=== PATIENT | female | born 1955 ===

== ENCOUNTER 2020-03-20 16:35 | Inpatient (IN) | payer MEDICARE ==
[~2020-03-20] VITALS: Ht 152.4 cm; Wt 63.6 kg
[2020-03-20] MEDS ORDERED: OMEPRAZOLE20 M1 PO (16:40)
[2020-03-20] MEDS ORDERED: K-TAB10 MEQ PO (16:41)
[2020-03-20 17:48] VITALS: BP 115/56
[2020-03-20 17:50] LABS: BASOPHILS 0.1 % (0-2); EOSINOPHILS 0 % (0-7); HEMOGLOBIN 14.2 g/dL (12-16); IMMATURE GRANULOCYTES 0.7 % (0-5); LYMPHOCYTES 8.2 % (15-50); MCH 33.3 pg (26.0-34.0); MCHC 34.6 g/dL (31.0-37.0); MEAN PLATELET VOLUME 9.5 fL (7.4-10.4); MONOCYTES 6.4 % (2-11); NEUTROPHILS 84.6 % (40-80); PLATELET COUNT 147 10x3/uL (130-400); RBC 4.27 10x6/uL (4.00-5.40); RDW 13.2 % (11.5-14.5); WBC 13.1 10x3/uL (4.8-10.8)
[2020-03-20 17:59] LABS: APTT 30.2 SECONDS (22.8-39.4); INR 1.1 (0.85-1.17); PROTIME 14.2 SECONDS (11.6-15.0)
[2020-03-20 18:08] LABS: CALC OSMOLALITY 261 mosm/kg (275-300); CALCIUM 7.6 mg/dL (8.5-10.1); CARBON DIOXIDE 23.3 mmol/L (21.0-32.0); CHLORIDE - SERUM 95 mmol/L (98-107); CREATININE - SERUM 1.5 mg/dL (0.6-1.3); GLUCOSE 104 mg/dL (74-106); POTASSIUM - SERUM 3.3 mmol/L (3.5-5.1); SODIUM 129 mmol/L (136-145); UREA NITROGEN 21 mg/dL (7-18); eGFR NON AFRICAN AMERICAN 37 mL/min (90-120)
--- NOTE | 2020-03-20 18:15 | NUR ---
PER PROVIDER INCREASED 02 TO 4 LPM
[2020-03-20 18:26] LABS: ALBUMIN 2.6 g/dL (3.4-5.0); ALKALINE PHOSPHATASE 94 U/L (30-120); ALT (SGPT) 25 U/L (10-68); BILIRUBIN - TOTAL 1.04 mg/dL (0.2-1.3); CKMB 1.2 U/L (0.0-3.6); CREATINE KINASE 93 UL (21-215); PRO BNP 2284 pg/mL (0-125); PROTEIN - SERUM 5.8 g/dL (6.4-8.2); TROPONIN-I < 0.017 ng/mL (0.000-0.060)
--- NOTE | 2020-03-20 19:15 | NUR ---
PATIENTS NURSE GAVE THIS NURSE A SMALL PLASTIC BAG WITH WHITE CRYSTAL ROCK AND POWDER IN IT, SHE STATED SHE FOUND IT WHILE DISROBEING PATIENT. SECURITY WAS CONTACTED PER POLICY. ON ARRIVAL BY [employer] PACKAGE WAS GIVEN TO [facility] [employer]. 190 [facility] OFFICE IN ED, PLASTIC BAG WITH CRYSTAL ROCK AND POWDER GIVEN TO [facility].
[2020-03-20 20:04] VITALS: BP 134/74
[2020-03-21 01:56] VITALS: Ht 152.4 cm; Wt 63.6 kg
--- NOTE | 2020-03-21 04:46 | NUR ---
NURSE JAZMINE TO DRAW AM LAB. WILLOW IN LAB NOTIFIED, WILLOW STATED THAT SHE WILL LET THE PHLEBO. TECK KNOW.
--- NOTE | 2020-03-21 04:48 | NUR ---
NURSE UNABLE TO DRAW AM LAB, NOTIFIED WILLOW IN LAB, WILLOW STATED THAT SHE WILL LET PHLE[facility]. TECH KNOW.
[2020-03-21 07:18] LABS: BASOPHILS 0 % (0-2); EOSINOPHILS 0 % (0-7); HEMATOCRIT 41.4 % (36.0-48.0); HEMOGLOBIN 14.3 g/dL (12-16); IMMATURE GRANULOCYTES 0.5 % (0-5); LYMPHOCYTES 7.1 % (15-50); MCH 33.3 pg (26.0-34.0); MCHC 34.5 g/dL (31.0-37.0); MCV 96.5 fL (80.0-100.0); MEAN PLATELET VOLUME 9.9 fL (7.4-10.4); MONOCYTES 3.6 % (2-11); NEUTROPHILS 88.8 % (40-80); PLATELET COUNT 137 10x3/uL (130-400); RBC 4.29 10x6/uL (4.00-5.40); RDW 13.3 % (11.5-14.5); WBC 11.1 10x3/uL (4.8-10.8)
[2020-03-21 07:19] LABS: ANION GAP 15.1 mmol/L (8-16); CARBON DIOXIDE 22.2 mmol/L (21.0-32.0); CREATININE - SERUM 1.3 mg/dL (0.6-1.3); MAGNESIUM - SERUM 2.2 mg/dL (1.8-2.4); PHOSPHOROUS 3.5 mg/dL (2.5-4.9); POTASSIUM - SERUM 3.3 mmol/L (3.5-5.1); THYROID STIMULATING HORMONE 0.76 uIU/mL (0.36-3.74)
[2020-03-21 10:42] VITALS: BP 113/59
--- NOTE | 2020-03-21 17:21 | NUR ---
PT INSTRUCTED OF NEED FOR URINE SAMPLE. CUP LEFT IN BATHROOM. HAT PLACED IN TOILET.
[2020-03-22 06:45] LABS: ANION GAP 13.5 mmol/L (8-16); BASOPHILS 0 % (0-2); CALCIUM 8.4 mg/dL (8.5-10.1); CARBON DIOXIDE 21.9 mmol/L (21.0-32.0); CREATININE - SERUM 1.1 mg/dL (0.6-1.3); EOSINOPHILS 0 % (0-7); HEMATOCRIT 36.4 % (36.0-48.0); HEMOGLOBIN 12.6 g/dL (12-16); IMMATURE GRANULOCYTES 0.3 % (0-5); LYMPHOCYTES 8.5 % (15-50); MAGNESIUM - SERUM 2.6 mg/dL (1.8-2.4); MCHC 34.6 g/dL (31.0-37.0); MCV 95.3 fL (80.0-100.0); MEAN PLATELET VOLUME 9.7 fL (7.4-10.4); MONOCYTES 4.7 % (2-11); NEUTROPHILS 86.5 % (40-80); PLATELET COUNT 150 10x3/uL (130-400); POTASSIUM - SERUM 3.4 mmol/L (3.5-5.1); RBC 3.82 10x6/uL (4.00-5.40); RDW 13.3 % (11.5-14.5); WBC 10.9 10x3/uL (4.8-10.8)
[2020-03-22 06:51] LABS: PHOSPHOROUS 1.8 mg/dL (2.5-4.9)
--- NOTE | 2020-03-22 10:43 | MORECARE ---
CASE MANAGEMENT DISCHARGE SUMMARY PATIENT: CRISTINA DANIELLE UNIT: [id number] ADM DATE: 03/20/20 AGE: 64 : 53 SEX: F ROOM/BED: D.2129 AUTHOR: IRENA PLUMMER PHYSICIAN: REFERRING PHYSICIAN: DESIREE WAGNER MD DATE OF SERVICE: 03/22/20 Discharge Plan Patient Name: [facility]ANI[facility] [facility] 1955 Planned Disposition: Home Anticipated Discharge Date: Discharge Date: Expected LOS: Initial Reviewer: [email or web address] Initial Review Date: 03/20/2020 Generated: 03/22/20 11:43 am Patient Name: CRISTINA DANIELLE Page [phone] at 1043 All edits/amendments must be made on the electronic document DICTATION DATE: 03/22/20 1043 LEACH TANK TENDER: VON 03/22/20 1043 RPT#: [id number] DC DATE: STATUS: ADM IN [facility] [address] [place] [address] END OF REPORT
--- NOTE | 2020-03-22 10:52 | MORECARE ---
CASE MANAGEMENT DISCHARGE SUMMARY PATIENT: LINDSEY DANIELLE UNIT: [id number] ADM DATE: 03/20/20 AGE: 64 : 51 SEX: F ROOM/BED: D.2129 AUTHOR: IRENA PLUMMER PHYSICIAN: REFERRING PHYSICIAN: DESIREE WAGNER MD DATE OF SERVICE: 03/22/20 Discharge Plan Patient Name: LINDSEY DANIELLE [facility] : 1955 Planned Disposition: Home Anticipated Discharge Date: Discharge Date: Expected LOS: Initial Reviewer: [email or web address] Initial Review Date: 03/20/2020 Generated: 03/22/20 11:51 am DCPIA - Discharge Planning Initial Assessment Updated by [email or web address]: Lindsey Flower on 03/22/20 10:44 am * Is the patient Alert and Oriented? Yes * PCP Dr. Mae * Pharmacy [facility] * Preadmission Environment Home with Family * ADLs Independent * Equipment Nebulizer Shower Chair * Other Equipment Grab bars * List name and contact numbers for known caregivers / representatives who currently or will assist patient after discharge: Vera Danielle (dtr) [phone] Dung (dtr) [phone] * Verbal permission to speak to the caregivers and representatives has been obtained from the patient. Yes * Community resources currently utilized None * Please name any agencies selected above. NA * Additional services required to return to the preadmission environment? No * Can the patient safely return to the preadmission environment? Yes * Has this patient been hospitalized within the prior 30 days at any hospital? No Last DP export: 03/22/20 9:43 a Patient Name: LINDSEY DANIELLE Page [phone] at 1052 All edits/amendments must be made on the electronic document DICTATION DATE: 03/22/20 1051 PLASTIC DIE MAKER APPRENTICE: VON 03/22/20 1051 RPT#: [id number] DC DATE: STATUS: ADM IN [facility] [address] [place] [address] END OF REPORT
--- NOTE | 2020-03-22 12:01 | NUR ---
PT CALLED TO SAY SHE HAD URINE AND STOOL FOR ME. WENT TO COLLECT UDS BUT SAMPLE MIXED. HAT REPLACED AND PT INSTRUCTED TO TRY AND USE SPECIMAN CUP FOR URINE.
[2020-03-22 13:50] LABS: UDS - AMPHET POSITIVE QUAL (NEGATIVE); UDS - BARB NEGATIVE QUAL (NEGATIVE); UDS - BENZO NEGATIVE QUAL (NEGATIVE); UDS - COCAINE NEGATIVE QUAL (NEGATIVE); UDS - OPIATE NEGATIVE QUAL (NEGATIVE); UDS - PCP NEGATIVE QUAL (NEGATIVE); UDS - THC NEGATIVE QUAL (NEGATIVE)
[2020-03-22 13:56] LABS: BILIRUBIN NEGATIVE (NEGATIVE); KETONE NEGATIVE (NEGATIVE); NITRITE NEGATIVE (NEGATIVE)
[2020-03-22 15:36] VITALS: BP 121/70
[2020-03-22 18:02] VITALS: BP 126/73
--- NOTE | 2020-03-22 19:00 | NUR ---
REPORT RECEIVED, WILL CONTINUE POC. PATIENT IS AAOX4, LYING IN SEMI-FOWLERS POSITION. NO S/S OF DISTRESS OBSERVED, RR EVEN AND UNLABORED ON 2L O2 VIA NC. PATIENT DENIES NEEDS AT THIS TIME. CL IN REACH, BED LOCKED AND LOWERED. COVID DROPLET PRECAUTIONS MAINTAINED. WILL CTM.
[2020-03-23] VITALS: BP 140/73
[2020-03-23 04:00] VITALS: BP 158/77
[2020-03-23 05:19] LABS: BASOPHILS 0.1 % (0-2); EOSINOPHILS 0 % (0-7); HEMATOCRIT 34.3 % (36.0-48.0); HEMOGLOBIN 11.9 g/dL (12-16); IMMATURE GRANULOCYTES 0.3 % (0-5); LYMPHOCYTES 9.6 % (15-50); MCH 32.9 pg (26.0-34.0); MCHC 34.7 g/dL (31.0-37.0); MCV 94.8 fL (80.0-100.0); MEAN PLATELET VOLUME 10.4 fL (7.4-10.4); MONOCYTES 5.8 % (2-11); NEUTROPHILS 84.2 % (40-80); PLATELET COUNT 163 10x3/uL (130-400); RBC 3.62 10x6/uL (4.00-5.40); RDW 13.4 % (11.5-14.5); WBC 11.6 10x3/uL (4.8-10.8)
[2020-03-23 05:51] LABS: ANION GAP 12.7 mmol/L (8-16); C-REACTIVE PROTEIN 6.2 mg/dL (0.0-0.9); CALCIUM 8.5 mg/dL (8.5-10.1); CARBON DIOXIDE 21.5 mmol/L (21.0-32.0); MAGNESIUM - SERUM 2.4 mg/dL (1.8-2.4); POTASSIUM - SERUM 3.2 mmol/L (3.5-5.1)
--- NOTE | 2020-03-23 06:11 | NUR ---
ADMINISTERED 40MEQ K-DUR PER EP FOR POTASSIUM OF 3.2. IR HERE TO TAKE PATIENT FOR CTA.
[2020-03-23 08:04] VITALS: BP 173/78
[2020-03-23] MEDS ORDERED: FLUTICASONE PRO16 GM NASAL (11:31)
[2020-03-23] MEDS ORDERED: MUCINEX600 MG PO (11:31)
[2020-03-23] MEDS ORDERED: TESSALON PERLE100 MG PO (11:31)
[2020-03-23] MEDS ORDERED: OMNICEF300 MG PO (11:33)
[2020-03-23] MEDS ORDERED: ZITHROMAX500 MG PO (11:33)
[2020-03-23] MEDS ORDERED: DECADRON4 MG PO (11:33)
[2020-03-23] MEDS ORDERED: ALBUTEROL SULF8.5 GM INH (11:34)
--- NOTE | 2020-03-23 11:57 | MORECARE ---
CASE MANAGEMENT DISCHARGE SUMMARY PATIENT: CRISTINA DANIELLE UNIT: [id number] ADM DATE: 03/20/20 AGE: 64 : 51 SEX: F ROOM/BED: D.2222 AUTHOR: IRENA PLUMMER PHYSICIAN: REFERRING PHYSICIAN: DESIREE WAGNER MD DATE OF SERVICE: 03/23/20 Discharge Plan Patient Name: CRISTINA DANIELLE Facility: [facility]:[place] : 1955 Planned Disposition: Home Anticipated Discharge Date: Discharge Date: Expected LOS: 0 Initial Reviewer: [email or web address] Initial Review Date: 03/23/2020 Generated: 03/23/20 12:57 pm DCPIA - Discharge Planning Initial Assessment Updated by [email or web address]: Gena Molina on 03/23/20 11:53 am * Is the patient Alert and Oriented? Yes * How many steps to enter\exit or inside your home? 3/0 * PCP jonathan * [facility] * Preadmission Environment Home with Family * ADLs Independent * Equipment None * Verbal permission to speak to the caregivers and representatives has been obtained from the patient. N/A * Community resources currently utilized None * Additional services required to return to the preadmission environment? No * Can the patient safely return to the preadmission environment? Yes * Has this patient been hospitalized within the prior 30 days at any hospital? No Patient Name: CRISTINA DANIELLE Page [phone] at 1157 All edits/amendments must be made on the electronic document DICTATION DATE: 03/23/20 1157 ENERGY BROKER: VON 03/23/20 1157 RPT#: [id number] DC DATE: STATUS: ADM IN [facility] [address] [place] [address] END OF REPORT
--- NOTE | 2020-03-23 12:04 | MORECARE ---
CASE MANAGEMENT DISCHARGE SUMMARY PATIENT: CRISTINA DANIELLE UNIT: [id number] ADM DATE: 03/20/20 AGE: 64 : 51 SEX: F ROOM/BED: D.7746 AUTHOR: IRENA PLUMMER PHYSICIAN: REFERRING PHYSICIAN: DESIREE WAGNER MD DATE OF SERVICE: 03/23/20 Discharge Plan Patient Name: CRISTINA DANIELLE Facility: [facility]:[place] : 1955 Planned Disposition: Home Anticipated Discharge Date: Discharge Date: Expected LOS: 0 Initial Reviewer: [email or web address] Initial Review Date: 03/23/2020 Generated: 03/23/20 1:04 pm Comments DCP- Discharge Planning Updated by [email or web address]: Gena Molina on 03/23/20 11:[address] Patient Name: CRISTINA DANIELLE Admission Status: ER Accout number: [id number] Admission Date: 03-20-2020 : 1955 Admission Diagnosis:COVID-19 Attending: DESIREE WAGNER Current LOS: 3 Anticipated DC Date: Planned Disposition: Home Primary Insurance: MEDICARE A & B Discharge Planning Comments: CM met with patient to complete initial dc planning assessment. CM educated patient on the CM role and verbal consent given by patient to complete assessment. CM verified patient's address, phone number, and emergency contact phone numbers. Patient lives at home and takes care of her mother. At discharge patient plans to return home and feels this is a safe discharge. CM discussed availability of home health, rehab services, and medical equipment. Patient denied known discharge needs at this time. Declination verbalized. Transportation provider at discharge will be a friend who is on the way. Patient states she is leaving today. States if she does not get discharged by the time her ride gets here she will leave. Patient states she is independent and does not need anything. DC IMM explained via phone. Patient verbalized understanding. Imm will be provided with dc instructions. CM will continue to follow and will assist as needed with dc plans/needs. Instrument Adjuster: Gena Molina DCPIA - Discharge Planning Initial Assessment Updated by [email or web address]: Gena Molina on 03/23/20 11:53 am * Is the patient Alert and Oriented? Yes * How many steps to enter\exit or inside your home? 3/0 * PCP jonathan * [facility] * Preadmission Environment Home with Family * ADLs Independent * Equipment None * Verbal permission to speak to the caregivers and representatives has been obtained from the patient. N/A * Community resources currently utilized None * Additional services required to return to the preadmission environment? No * Can the patient safely return to the preadmission environment? Yes * Has this patient been hospitalized within the prior 30 days at any hospital? No Coverage Notice Reviewer: [email or web address] Markell Molina Notice Issued Date-Time: 03/23/2020 12:00 Notice Type: Patient Choice Letter Notice Delivered To: Patient Relationship to Patient: Assistant Food Service Manager Name: Delivery Method: PHONE - Phone Ximena Days: Prior Verbal Notification: Yes Recipient Understood Notice: Yes Recipient Signature: Med Rec Note Co-signed by Attending: Coverage Notice Comment: declined hh/dme/rehab Reviewer: [email or web address] Markell Molina Notice Issued Date-Time: 03/23/2020 12:00 Notice Type: IM Discharge Notice Notice Delivered To: Patient Relationship to Patient: Assistant Food Service Manager Name: Delivery Method: PHONE - Phone Ximena Days: Prior Verbal Notification: Yes Recipient Understood Notice: Yes Recipient Signature: Med Rec Note Co-signed by Attending: Coverage Notice Comment: DC IMM explained via phone. verbalized understanding. rn provided copy of notice with dc instructions Last DP export: 03/23/20 10:57 a Patient Name: CRISTINA DANIELLE Page [phone] at 1204 All edits/amendments must be made on the electronic document DICTATION DATE: 03/23/20 1204 EMERGENCY DEPARTMENT CLINICIAN: VON 03/23/20 1204 RPT#: [id number] DC DATE: STATUS: ADM IN [facility] [address] [place] [address] END OF REPORT
--- NOTE | 2020-03-23 12:41 | NUR ---
ALL DC PAPERWORK VERBALLY EXPLAINED W/UNDERSTANDING STATED TO ALL. PT EXITED HOSPITAL/WHEELCHAIR IN GOOD STABLE CONDITION INTO THE CARE OF HER GRAND CHILDREN.
--- NOTE | 2020-03-26 00:47 | NUR ---
ROCEPHIN INFUSION STOP TIME 1929.
--- NOTE | 2020-03-26 00:48 | NUR ---
AZITHROMYCIN INFUSION STOP TIME 2000
--- NOTE | 2020-03-26 05:57 | NUR ---
ROCEPHIN INFUSION STOPPED AT 2039
--- NOTE | 2020-03-26 05:57 | NUR ---
AZITHROMYCIN INFUSION STOPPED AT 214
--- NOTE | 2020-03-26 09:12 | MORECARE ---
CASE MANAGEMENT DISCHARGE SUMMARY PATIENT: CRISTINA DANIELLE UNIT: [id number] ADM DATE: 03/20/20 AGE: 64 : 51 SEX: F ROOM/BED: D.8093 AUTHOR: IRENA PLUMMER PHYSICIAN: REFERRING PHYSICIAN: DESIREE WAGNER MD DATE OF SERVICE: 03/26/20 Discharge Plan Patient Name: CRISTINA DANIELLE Facility: [facility]:[place] : 1955 Planned Disposition: Home Anticipated Discharge Date: Discharge Date: 03/23/2020 Expected LOS: 0 Initial Reviewer: [email or web address] Initial Review Date: 03/23/2020 Generated: 03/26/20 10:11 am Comments DCP- Discharge Planning Updated by [email or web address]: Gena Molina on 03/23/20 11:[address] Patient Name: CRISTINA DANIELLE Admission Status: ER Accout number: [id number] Admission Date: 03-20-2020 : 1955 Admission Diagnosis:COVID-19 Attending: DESIREE WAGNER Current LOS: 3 Anticipated DC Date: Planned Disposition: Home Primary Insurance: MEDICARE A & B Discharge Planning Comments: CM met with patient to complete initial dc planning assessment. CM educated patient on the CM role and verbal consent given by patient to complete assessment. CM verified patient's address, phone number, and emergency contact phone numbers. Patient lives at home and takes care of her mother. At discharge patient plans to return home and feels this is a safe discharge. CM discussed availability of home health, rehab services, and medical equipment. Patient denied known discharge needs at this time. Declination verbalized. Transportation provider at discharge will be a friend who is on the way. Patient states she is leaving today. States if she does not get discharged by the time her ride gets here she will leave. Patient states she is independent and does not need anything. DC IMM explained via phone. Patient verbalized understanding. Imm will be provided with dc instructions. CM will continue to follow and will assist as needed with dc plans/needs. Scheduler Conveyor: Gena Molina DCPIA - Discharge Planning Initial Assessment Updated by [email or web address]: Gena Molina on 03/23/20 11:53 am * Is the patient Alert and Oriented? Yes * How many steps to enter\exit or inside your home? 3/0 * PCP jonathan * [facility] * Preadmission Environment Home with Family * ADLs Independent * Equipment None * Verbal permission to speak to the caregivers and representatives has been obtained from the patient. N/A * Community resources currently utilized None * Additional services required to return to the preadmission environment? No * Can the patient safely return to the preadmission environment? Yes * Has this patient been hospitalized within the prior 30 days at any hospital? No Coverage Notice Reviewer: [email or web address] Markell Molina Notice Issued Date-Time: 03/23/2020 12:00 Notice Type: Patient Choice Letter Notice Delivered To: Patient Relationship to Patient: Golf Course Designer Name: Delivery Method: PHONE - Phone Ximena Days: Prior Verbal Notification: Yes Recipient Understood Notice: Yes Recipient Signature: Med Rec Note Co-signed by Attending: Coverage Notice Comment: declined hh/dme/rehab Reviewer: [email or web address] Markell Molina Notice Issued Date-Time: 03/23/2020 12:00 Notice Type: IM Discharge Notice Notice Delivered To: Patient Relationship to Patient: Golf Course Designer Name: Delivery Method: PHONE - Phone Ximena Days: Prior Verbal Notification: Yes Recipient Understood Notice: Yes Recipient Signature: Med Rec Note Co-signed by Attending: Coverage Notice Comment: DC IMM explained via phone. verbalized understanding. rn provided copy of notice with dc instructions Last DP export: 03/23/20 11:04 a Patient Name: CRISTINA DANIELLE Page [phone] at 0912 All edits/amendments must be made on the electronic document DICTATION DATE: 03/26/20910 FLAVORER: VON 03/26/20910 RPT#: [id number] DC DATE:03/23/20 STATUS: DIS IN [facility] [address] [place] [address] END OF REPORT
== END 2020-03-23 13:00 | disposition home or self-care (01) | DRG 177 ==
LOC: D.ER 16:35 → D.EDHOLD 19:42 → D.M2 19:42
PROVIDERS: Family Medicine; Internal Medicine Pulmonary Disease; ADMIT Emergency Medicine; ATTEND Emergency Medicine
DX: U07.1 COVID-19 (principal); G93.41 Metabolic encephalopathy; E87.1 Hypo-osmolality and hyponatremia; N17.9 Acute kidney failure, unspecified; E87.6 Hypokalemia; I10 Essential (primary) hypertension; F17.200 Nicotine dependence, unspecified, uncomplicated; M81.0 Age-related osteoporosis without current pathological fracture; J44.9 Chronic obstructive pulmonary disease, unspecified; K21.9 Gastro-esophageal reflux disease without esophagitis; J30.9 Allergic rhinitis, unspecified; R51 Headache; F15.10 Other stimulant abuse, uncomplicated; Z86.73 Personal history of transient ischemic attack (TIA), and cerebral infarction without residual deficits